=== PATIENT | female | born 1995 | race Caucasian/White ===

== ENCOUNTER 2016-11-11 12:48 | Emergency (ER) | payer SELFPAY ==
[2016-11-11 17:47] VITALS: BP 103/63
== END 2016-11-11 17:47 | disposition home or self-care (01) ==
LOC: ED 12:48
DX: S16.1XXA Strain of muscle, fascia and tendon at neck level, initial encounter (principal); D72.0 Genetic anomalies of leukocytes; V43.92XA Unspecified car occupant injured in collision with other type car in traffic accident, initial encounter; Y93.89 Activity, other specified; Y92.410 Unspecified street and highway as the place of occurrence of the external cause; Y99.8 Other external cause status

== ENCOUNTER 2017-01-05 22:39 | Emergency (ER) | payer OTHER ==
[2017-01-06 00:35] LABS: BASOPHIL % 0.5 % (0-2); RED CELL DISTRIBUTION WIDTH 13.4 % (11.5-14.5)
[2017-01-06 00:37] LABS: PLATELET COUNT 119 x10^3mcL (130-400)
[2017-01-06 00:53] LABS: CALCIUM 8.6 mg/dL (8.5-10.1); CARBON DIOXIDE 27.3 mmol/L (21-32); CHLORIDE SERUM 104 mmol/L (98-107); CREATININE SERUM 0.7 mg/dL (0.6-1.0); GFR1 > 60 mL/min; GLUCOSE SERUM 99 mg/dL (74-106); SODIUM SERUM 138 mmol/L (136-145)
[2017-01-06 01:08] LABS: ALBUMIN 4.2 g/dL (3.4-5.0); ALKALINE PHOSPHATASE 49 U/L (46-116); ALT/SGPT 19 U/L (14-59); AST/SGOT 14 U/L (15-37); BILIRUBIN TOTAL 0.48 mg/dL (0.20-1.00); FREE T4 1.17 ng/dL (0.76-1.46); TOTAL PROTEIN, SERUM 7.5 g/dL (6.4-8.2)
[2017-01-06 03:09] VITALS: BP 135/69
== END 2017-01-06 02:40 | disposition home or self-care (01) ==
LOC: ED 22:39
PROVIDERS: Emergency Medicine
DX: R51 Headache (principal); R11.2 Nausea with vomiting, unspecified; R68.83 Chills (without fever); D69.6 Thrombocytopenia, unspecified; D72.0 Genetic anomalies of leukocytes
CPT/HCPCS: 84439; Q0162